=== PATIENT | female | born 1990 | race Caucasian/White ===

== ENCOUNTER 2016-07-30 20:11 | Emergency (ER) | payer OTHER ==
--- NOTE | 2016-07-30 20:45 | PROVIDER DOCUMENTATION ---
HPI-Abdominal Pain/GI Problem - General Chief Complaint: Abdominal Pain Stated Complaint: RT SIDE PAIN Time Seen by Provider: 07/30/16 20:38 Source: patient Allergies/Adverse Reactions: Patient Allergies Allergy/AdvReac Type Severity Reaction Status Date / Time amoxicillin Allergy Intermediate HIVES Verified 07/30/16 21:54 Penicillins Allergy Intermediate HIVES Verified 07/30/16 21:54 Home Medications: Home Medication List Medication Instructions Recorded Confirmed Last Taken Type Hydrocodone/Acetaminophen [[place] 1 each PO Q4-6H PRN PRN #20 tablet 07/30/16 Unknown Rx 7.5-325 Tablet] Ondansetron [Zofran] 4 mg PO Q6H PRN PRN #20 tablet 07/30/16 Unknown Rx - History of Present Illness-ABD Nature of Presenting Problems: 25 y/o F with no chronic medical problems presents with RLQ abdominal pain that began this morning. Pain is described as intermittent, sharp radiating into central abdomen. Reports nausea. Denies vomiting, diarrhea, dysuria. Last BM this morning normal. LMP: 07/25/16. Abdominal Pain Onset Location: reports: RLQ Pain Radiation: reports: other (lower abdomen) Quality of Pain: reports: sharp Severity in ED: reports: severe Onset/Duration: reports: this morning Timing: reports: still present Activities at Onset: reports: none Exposure to sick contacts?: No Modifying Factors: improves with: nothing Associated Symptoms: reports: nausea. denies: chest pain, constipation, diarrhea, fever/chills, genitourinary problems, vomiting Last BM: this morning Dark Stools Present?: reports: none noticed Rectal Bleeding: reports: none Rectal Pain: reports: none Emesis Description: reports: none Review of Systems - Adult - REVIEW OF SYSTEMS - ADULT Constitutional: reports: no symptoms reported. denies: chills, fever Eyes: reports: no symptoms reported Ears, Nose, Mouth & Throat: reports: no symptoms reported Cardiovascular: reports: no symptoms reported. denies: chest pain Respiratory: reports: no symptoms reported. denies: cough, shortness of breath , wheezing Gastrointestinal: reports: see HPI Genitourinary: reports: no symptoms reported. denies: dysuria, discharge, frequency, flank pain, hematuria Musculoskeletal: reports: no symptoms reported. denies: back pain Integumentary: reports: no symptoms reported. denies: itching, rash Neurological: reports: no symptoms reported. denies: dizziness/vertigo, headache/migraines Psychiatric: reports: no symptoms reported Endocrine: reports: no symptoms reported Hematologic/Lymphatic: reports: no symptoms reported Allergic/Immunologic: reports: no symptoms reported All Other Systems: Reviewed and Negative Past History - Adult - PAST MEDICAL HISTORY-ADULT Review of Records: reports: Nursing Assessment Review, Medications Reviewed Physical Exam-General - PHYSICAL EXAM-ADULT Initial Vital Signs Reviewed: Yes - CONSTITUTIONAL General Appearance: appears well, alert, no apparent distress - EYES Eyes: PERRL/EOMI, pink conjunctivae - HEAD, EARS, NOSE, MOUTH & THROAT HENMT: normocephalic/atraumatic, moist mucous membranes - NECK Neck: non-tender, full range of motion, supple - RESPIRATORY Respiratory: chest non-tender, lungs clear, normal breath sounds, no pleuratic chest pain, no respiratory distress, no accessory muscle use - CARDIOVASCULAR Cardiovascular: normal peripheral pulses, regular rate, rhythm, no edema, no gallop, no JVD, no murmur - GASTROINTESTINAL (ABDOMEN) Abdominal Exam: normal bowel sounds, soft, tenderness (RLQ) - LYMPHATIC Lymphatic: no adenopathy - MUSCULOSKELETAL Back Exam: normal inspection, no CVA tenderness, no vertebral tenderness Extremity: normal gait, normal inspection - SKIN Integumentary: normal color, normal turgor, warm/dry - NEUROLOGIC Neurologic: grossly normal, no motor/sensory deficits - PSYCHIATRIC Psych/Mental Status: normal mood/affect, normal thought content, normal thought process, oriented x 3 Progress - PLAN OF CARE/RESULTS Progress/Plan/Lab Results: Laboratory Tests 07/30/16 07/30/16 07/30/16 20:52 20:52 20:52 WBC 6.12 RBC 4.71 Hgb 13.5 Hct 40.8 MCV 86.6 MCH 28.7 MCHC 33.1 RDW Std Deviation 12.6 Plt Count 303 MPV 10.8 H Immature Gran % (Auto) 0.0 Neut % (Auto) 47.9 Lymph % (Auto) 38.9 [place] % (Auto) 8.7 Eos % (Auto) 4.2 Baso % (Auto) 0.3 Immature Gran # (Auto) 0.00 Neut # (Auto) 2.93 Lymph # (Auto) 2.38 [place] # (Auto) 0.53 Eos # (Auto) 0.26 Baso # (Auto) 0.02 Sodium 143 Potassium 4.1 Chloride 105 Carbon Dioxide 27 Anion Gap 11 BUN 11 Creatinine 0.7 Estimated GFR/1.73 m2 > 60 BUN/Creatinine Ratio 16 Glucose 99 Calculated Osmolality 284 Calcium 9.8 Total Bilirubin 0.24 AST 13 ALT 20 Alkaline Phosphatase 77 Total Protein 7.1 Albumin 4.2 Globulin 2.9 Albumin/Globulin Ratio 1.4 Amylase 56 Lipase 30 Urine Source Urine Color Urine Turbidity Urine pH Ur Specific [place] Urine Protein Ur Glucose (Stick) Ur Ketones (Stick) Urine Blood Urine Nitrite Urine Bilirubin Urobilinogen Dipstick Urine Leukocytes Urine WBC (Auto) Urine RBC (Auto) U Epithel Cells (Auto) Urine Bacteria (Auto) Urine Test NEGATIVE 07/30/16 20:52 WBC RBC Hgb Hct MCV MCH MCHC RDW Std Deviation Plt Count MPV Immature Gran % (Auto) Neut % (Auto) Lymph % (Auto) [place] % (Auto) Eos % (Auto) Baso % (Auto) Immature Gran # (Auto) Neut # (Auto) Lymph # (Auto) [place] # (Auto) Eos # (Auto) Baso # (Auto) Sodium Potassium Chloride Carbon Dioxide Anion Gap BUN Creatinine Estimated GFR/1.73 m2 BUN/Creatinine Ratio Glucose Calculated Osmolality Calcium Total Bilirubin AST ALT Alkaline Phosphatase Total Protein Albumin Globulin Albumin/Globulin Ratio Amylase Lipase Urine Source CLEAN CATCH Urine Color YELLOW Urine Turbidity CLEAR Urine pH 7.0 Ur Specific [place] 1.015 Urine Protein NEGATIVE Ur Glucose (Stick) NEGATIVE Ur Ketones (Stick) NEGATIVE Urine Blood NEGATIVE Urine Nitrite NEGATIVE Urine Bilirubin NEGATIVE Urobilinogen Dipstick NORMAL Urine Leukocytes NEGATIVE Urine WBC (Auto) <10 Urine RBC (Auto) <10 U Epithel Cells (Auto) <10 Urine Bacteria (Auto) NEGATIVE Urine Test Orders Category Date Time Status IV Insertion ORDERED Care 07/30/16 20:46 Active Saline Loc DIRECTED Care 07/30/16 20:32 Active NPO Diet 07/30/16 20:[address] ABD/PELVIS W/ IV CONT ONLY [CT] Stat Exams 07/30/16 20:51 Taken AMYLASE [CHEM] Stat Lab 07/30/16 20:52 Completed CBC WITH ELECTRONIC DIFF [HEME] Stat Lab 07/30/16 20:52 Completed COMPREHENSIVE METABOLIC PANEL [CHEM] Stat Lab 07/30/16 20:52 Completed LIPASE [CHEM] Stat Lab 07/30/16 20:52 Completed TEST-URINE [PREG] Stat Lab 07/30/16 20:52 Completed URINALYSIS W/POSS RFLX CULT [URINALYSIS] Stat Lab 07/30/16 20:52 Completed Hydromorphone [Dilaudid] Med 07/30/16 20:46 Discontinued 1 mg IV NOW ONE Ondansetron [Zofran] Med 07/30/16 20:46 Discontinued 4 mg IV NOW ONE Vital Signs Temp Pulse Resp BP Pulse Ox 07/30/16 20:29 98.4 F 91 H 18 123/71 100 amoxicillin Allergy (Intermediate, Verified 07/30/16 21:54) HIVES Penicillins Allergy (Intermediate, Verified 07/30/16 21:54) HIVES No Home Medications 07/30/16 Dietary Diet NPO Start FriJul 31 2031 I&O 07/29/16 07/30/16 07/31/16 06:59 06:59 06:59 Output Total 50 Balance -50 Laboratory 07/30/16 07/30/16 07/30/16 20:52 20:52 20:52 WBC 6.12 RBC 4.71 Hgb 13.5 Hct 40.8 MCV 86.6 MCH 28.7 MCHC 33.1 RDW Std Deviation 12.6 Plt Count 303 MPV 10.8 H Immature Gran % (Auto) 0.0 Neut % (Auto) 47.9 Lymph % (Auto) 38.9 [place] % (Auto) 8.7 Eos % (Auto) 4.2 Baso % (Auto) 0.3 Immature Gran # (Auto) 0.00 Neut # (Auto) 2.93 Lymph # (Auto) 2.38 [place] # (Auto) 0.53 Eos # (Auto) 0.26 Baso # (Auto) 0.02 Sodium Potassium Chloride Carbon Dioxide Anion Gap BUN Creatinine Estimated GFR/1.73 m2 BUN/Creatinine Ratio Glucose Calculated Osmolality Calcium Total Bilirubin AST ALT Alkaline Phosphatase Total Protein Albumin Globulin Albumin/Globulin Ratio Amylase Lipase Urine Source CLEAN CATCH Urine Color YELLOW Urine Turbidity CLEAR Urine pH 7.0 Ur Specific [place] 1.015 Urine Protein NEGATIVE Ur Glucose (Stick) NEGATIVE Ur Ketones (Stick) NEGATIVE Urine Blood NEGATIVE Urine Nitrite NEGATIVE Urine Bilirubin NEGATIVE Urobilinogen Dipstick NORMAL Urine Leukocytes NEGATIVE Urine WBC (Auto) <10 Urine RBC (Auto) <10 U Epithel Cells (Auto) <10 Urine Bacteria (Auto) NEGATIVE Urine Test NEGATIVE 07/30/16 20:52 WBC RBC Hgb Hct MCV MCH MCHC RDW Std Deviation Plt Count MPV Immature Gran % (Auto) Neut % (Auto) Lymph % (Auto) [place] % (Auto) Eos % (Auto) Baso % (Auto) Immature Gran # (Auto) Neut # (Auto) Lymph # (Auto) [place] # (Auto) Eos # (Auto) Baso # (Auto) Sodium 143 Potassium 4.1 Chloride 105 Carbon Dioxide 27 Anion Gap 11 BUN 11 Creatinine 0.7 Estimated GFR/1.73 m2 > 60 BUN/Creatinine Ratio 16 Glucose 99 Calculated Osmolality 284 Calcium 9.8 Total Bilirubin 0.24 AST 13 ALT 20 Alkaline Phosphatase 77 Total Protein 7.1 Albumin 4.2 Globulin 2.9 Albumin/Globulin Ratio 1.4 Amylase 56 Lipase 30 Urine Source Urine Color Urine Turbidity Urine pH Ur Specific [place] Urine Protein Ur Glucose (Stick) Ur Ketones (Stick) Urine Blood Urine Nitrite Urine Bilirubin Urobilinogen Dipstick Urine Leukocytes Urine WBC (Auto) Urine RBC (Auto) U Epithel Cells (Auto) Urine Bacteria (Auto) Urine Test - REASSESSMENT Reassessment #1 Time Reassessed: 23:10 (Patient's pain and nausea improved with treatment. VSS. No vomiting in ER. CT shows uncomplicated cholelithiasis. Liver function and billirubin WNL. WBC WNL. Discussed with Dr. Dent. Will discharge patient home with emil. Gen Surg follow up given. Patient given strict return precautions to return to ED for vomiting, fever, worsening pain or any other new /worsening symptoms.) Status: improving - XRAY 1 XRAY: Left XRAY Study: other (little finger) XRAY Interpretation: displaced fracture of distal phalanx Departure - Departure Time of Disposition Order: 23:07 DIAGNOSIS: Cholelithiasis Disposition: HOME 01 Certified Medical Emergency: Emergent Condition: Good Additional Instructions: ED Follow Up Instructions: You have been treated by a care provider in the Emergency Department. These instructions are being provided to you so you can have an understanding of how to care for yourself upon discharge. Upon discharge from the Emergency Department, you are responsible for making arrangements for follow-up care by a physician of your choice. Take all prescribed medications as directed. Return to the Emergency Department immediately for any new or worsening symptoms. You may call the Physician Referral phone number at [phone] to obtain a list of Physicians who are taking new patients. Prescriptions: Hydrocodone/Acetaminophen [[place] 7.5-325 Tablet] 1 each PO Q4-6H PRN PRN #20 tablet PRN Reason: Pain Ondansetron [Zofran] 4 mg PO Q6H PRN PRN #20 tablet PRN Reason: Nausea Referrals: None,PCP [Primary Care Provider] - Foster Vargas MD [STAFF PHYSICIAN] - Instructions: Cholelithiasis Attestation - Physician/ MICAELA Attestation Patient care was provided by Advanced Practice Provider:: Yes Advanced Practice Provider:: Alisa Chapa Advanced Practice Provider documentation review:: The Mid-level provider documentation, treatment plan and medical decision making was reviewed by the physician who agrees with all treatment and medical decision making by the MLP.
[2016-07-30] MEDS ORDERED: DILAUDID IV ONE (20:46)
[2016-07-30] MEDS ORDERED: ZOFRAN IV ONE (20:46)
[2016-07-30 21:03] LABS: MANUAL DIFF NEEDED? NO; URINE CULTURE NEEDED? NO; URINE MICRO REVIEW NEEDED? NO; URINE SOURCE CLEAN CATCH
[2016-07-30 21:08] LABS: BASO% 0.3 % (0.0-0.8); EOS# 0.26 X1000 (0.0-0.7); EOS% 4.2 % (0.0-10.0); HEMATOCRIT 40.8 % (37.0-47.0); HEMOGLOBIN 13.5 g/dL (12.0-16.0); LYMPH# 2.38 X1000 (1.2-3.4); LYMPH% 38.9 % (20.5-51.1); MCH 28.7 PG (27-31); MCHC 33.1 g/dL (33-37); MCV 86.6 FL (81-99); MONO# 0.53 X1000 (0.11-0.59); MONO% 8.7 % (1.7-9.3); MPV 10.8 FL (7.4-10.4); NEUT% 47.9 % (42.2-75.2); PLT 303 X1000 (130-400); RBC 4.71 XMIL (4.2-5.4)
[2016-07-30 21:10] LABS: BILIRUBIN URINE NEGATIVE (NEGATIVE); BLOOD URINE NEGATIVE (NEGATIVE); COLOR YELLOW; GLUCOSE URINE NEGATIVE (NEGATIVE); LEUKOCYTES URINE NEGATIVE (NEGATIVE); NITRITE URINE NEGATIVE (NEGATIVE); PROTEIN URINE NEGATIVE (NEGATIVE); SP GRAVITY URINE 1.015; TURBIDITY URINE CLEAR (CLEAR); UROBILINOGEN URINE NORMAL (NORMAL)
[2016-07-30 21:11] LABS: UR EPITHELIAL CELLS <10 /HPF (<10); URINE BACTERIA NEGATIVE /HPF; URINE RBC <10 /HPF (<10); URINE WBC <10 /HPF (<10)
[2016-07-30 21:33] LABS: AGAP 11; ALBUMIN 4.2 g/dL (3.5-5.0); ALKALINE PHOSPHATASE 77 U/L (32-104); AMYLASE 56 U/L (20-200); BUN 11 mg/dL (8-22); CALCIUM 9.8 mg/dL (8.8-10.2); CHLORIDE 105 mmol/L (98-107); COSMO 284; GOT 13 U/L (10-30); GPT 20 U/L (10-36); LIPASE 30 U/L (13-60); POTASSIUM 4.1 mmol/L (3.5-5.1); SODIUM 143 mmol/L (136-145); TCO2 27 mmol/L (25-35); TOTAL BILIRUBIN 0.24 mg/dL (0.20-1.00); TOTAL PROTEIN 7.1 g/dL (6.3-8.3)
[2016-07-30 23:14] VITALS: BP 110/51
--- NOTE | 2016-07-31 08:45 | Diag Imaging Result Document ---
PROCEDURE NAME: CT ABD/PELVIS W/ IV CONT ONLY - 07/30/2016 CT ABDOMEN AND PELVIS WITH INTRAVENOUS CONTRAST: A CT dose reduction protocol was used. COMPARISON: None. FINDINGS: The lung bases are clear and the heart size is normal. There is a small calcified gallstone in the gallbladder. No gallbladder distention, wall thickening, or free fluid. No biliary dilation. The liver, pancreas, spleen, adrenals, and kidneys are normal. No bowel obstruction or inflammation. Normal appendix. Urinary bladder, uterus, and rectum are normal. There are moderate degenerative changes of the sacroiliac joints. Otherwise, bony structures are intact. IMPRESSION: Cholelithiasis. Otherwise, no acute disease. [facility]
== END 2016-07-30 23:15 | disposition home or self-care (01) ==
LOC: ED 20:11
DX: K80.20 Calculus of gallbladder without cholecystitis without obstruction (principal); R10.31 Right lower quadrant pain; R11.0 Nausea
CPT/HCPCS: 74177; 80053; 81001; 81025; 82150; 83690; 85025; J1170; J2405; Q9967

== ENCOUNTER 2016-08-05 05:34 | Day surgery (SDC) ==
[2016-08-05] MEDS ORDERED: TRANSDERM-SCOP ONE (05:52)
[2016-08-05] MEDS ORDERED: PEPCID ONE (05:52)
[2016-08-05] MEDS ORDERED: REGLAN ONE (05:52)
[2016-08-05] MEDS ORDERED: LEVAQUIN 500 MG/D5W 100 ML ONE (05:53)
[2016-08-05] MEDS ORDERED: LR 1,000 ML ONE ×3 (05:53→09:01)
[2016-08-05] MEDS ORDERED: VALIUM ONE (05:53)
[2016-08-05] MEDS ORDERED: MARCAINE 0.25% PF/EPI 1:200,000 ONE (06:27)
[2016-08-05] MEDS ORDERED: SODIUM CHLORIDE 0.9% ONE (06:27)
[2016-08-05] MEDS: MORPHINE ONE ×4 (08:39→09:08)
[2016-08-05] MEDS ORDERED: FENTANYL ONE (08:54)
[2016-08-05] MEDS ORDERED: DIPRIVAN 1% ONE (08:55)
[2016-08-05] MEDS ORDERED: VERSED ONE (08:55)
[2016-08-05] MEDS ORDERED: ZOFRAN ONE (09:01)
[2016-08-05] MEDS ORDERED: NEOSTIGMINE ONE (09:01)
[2016-08-05] MEDS ORDERED: ROBINUL ONE (09:01)
[2016-08-05] MEDS ORDERED: DECADRON ONE (09:01)
[2016-08-05] MEDS ORDERED: NORCO-10 ONE (09:49)
--- NOTE | 2016-08-05 10:00 | OPERATIVE NOTE ---
PROCEDURE DATE: 08/05/2016 PREOPERATIVE DIAGNOSIS: Symptomatic cholelithiasis. POSTOPERATIVE DIAGNOSIS: Symptomatic cholelithiasis. PROCEDURE PERFORMED: Laparoscopic cholecystectomy with operative cholangiogram. SURGEON: Eugenio Coleman MD ANESTHESIA: General. ESTIMATED BLOOD LOSS: 10 mL. COMPLICATIONS: None apparent. SPECIMENS: Gallbladder. FINDINGS: The cholangiogram revealed normal proximal hepatic radicles and distal common bile duct. There was flow of contrast into the duodenum. No stenoses or filling defects were appreciated. TECHNIQUE: She was brought to the operating room and placed supine on the table. General anesthesia was induced. She was prepped and draped in the usual sterile fashion. An 11 mm incision was made below the umbilicus. The fascia was exposed and incised sharply. Entry into the peritoneal cavity was obtained under direct vision with the Optiview device. A pneumoperitoneum was established. The camera was inserted. There was no evidence of any injury to underlying structures. She was placed in reverse Trendelenburg and left rotation. Three 5 mm incision and ports were placed under direct vision in the epigastrium and right upper quadrant per usual routine. The dome of the gallbladder was grasped by the wet process miller head assistant with an Allis clamp and lifted up superiorly. The triangle of [place] was then dissected out with a [place] forceps, the blunt tip of the suction device, and using hook cautery to incise fibroareolar tissue. A very small cystic artery was associated with the cystic duct. It was cauterized and divided with the hook. The critical view was obtained. The gallbladder-liver junction was seen. There was only 1 more structure entering the gallbladder and that was the cystic duct. It was clipped distally. A ductotomy was made proximal to this with scissors. A 14-gauge Angiocath was passed through the right upper quadrant. The Taut cholangiogram catheter was passed through this into the cystic duct and held in place with a clip. The cholangiogram was performed with findings as noted above. The clip, catheter, and Angiocath were then removed. Two clips were placed on the proximal cystic duct. It was divided distal to these 2. The gallbladder was taken off the liver bed using hook cautery, obtaining hemostasis along the way. After it was removed, I inspected the dissection area. There was minimal bloody ooze from the liver bed. This was controlled with cautery. We irrigated with saline and suctioned out the old blood and irrigant. The gallbladder was then brought out through the umbilical port site under direct vision. I then closed the umbilical fascia with 2 interrupted 0 Vicryl sutures using the Zach-Sandhya device. We then desufflated the abdomen and removed the ports. The skin was closed with running 4-0 subcuticular Monocryl and Steri-Strips. There were no apparent complications.
[2016-08-05 10:17] VITALS: BP 114/60
--- NOTE | 2016-08-05 13:21 | Diag Imaging Result Document ---
PROCEDURE NAME: OPERATIVE CHOLANGIOGRAM - 08/05/2016 INTRAOPERATIVE CHOLANGIOGRAM: COMPARISON: CT abdomen and pelvis dated 07/30/2016. FINDINGS: The exam was performed by the patient's surgeon. A single view was provided. Contrast was infused into the cystic duct. This outlines a normal common bile duct. There is good passage of contrast into the duodenum. IMPRESSION: No complication.
== END 2016-08-05 10:42 | disposition home or self-care (01) ==
LOC: OR 05:34
PROVIDERS: ATTEND Surgery
DX: K80.10 Calculus of gallbladder with chronic cholecystitis without obstruction (principal); Z87.891 Personal history of nicotine dependence
CPT/HCPCS: 74300; 88304; C1751; J1100; J2250; J2270; J2405; J3010; J7120; Q9966; J2710